=== PATIENT | female | born 1940 | race Caucasian/White ===

== ENCOUNTER → 2017-05-14 | Outpatient (CLI) | payer MEDICARE, OTHER ==
[~2017-05-14] MED LIST: BENICAR20 MG PO; NORCO 5-325 TA1 EACH PO; OMEPRAZOLE 20 M20 M1 PO
== END ==
LOC: M.RAD 15:08
DX: Z12.31 Encounter for screening mammogram for malignant neoplasm of breast (principal); M85.80 Other specified disorders of bone density and structure, unspecified site; Z78.0 Asymptomatic menopausal state

== ENCOUNTER 2017-06-06 10:26 | Emergency (ER) | payer MEDICARE, OTHER ==
[~2017-06-06] VITALS: Ht 162.6 cm; Wt 81.7 kg
[2017-06-06] MEDS ORDERED: BENICAR20 MG PO (10:36)
[2017-06-06] MEDS ORDERED: OMEPRAZOLE 20 M20 M1 PO (10:36)
[2017-06-06] MEDS ORDERED: NORCO 5-325 TA1 EACH PO (11:27)
[2017-06-06 11:47] VITALS: BP 191/72
== END 2017-06-06 11:49 | disposition home or self-care (01) ==
LOC: M.ERS 10:26
DX: S42.294A Other nondisplaced fracture of upper end of right humerus, initial encounter for closed fracture (principal); I10 Essential (primary) hypertension; K21.9 Gastro-esophageal reflux disease without esophagitis; Z88.2 Allergy status to sulfonamides; W10.8XXA Fall (on) (from) other stairs and steps, initial encounter; Y93.89 Activity, other specified; Y92.89 Other specified places as the place of occurrence of the external cause; Y99.8 Other external cause status

== ENCOUNTER → 2018-12-04 | Outpatient (CLI) | payer MEDICARE, OTHER | LOC: M.RAD 15:23 | DX: J06.9 Acute upper respiratory infection, unspecified (principal); R61 Generalized hyperhidrosis ==

== ENCOUNTER → 2018-12-22 | Outpatient (CLI) | payer MEDICARE, OTHER | LOC: M.RAD 14:40 | DX: M47.26 Other spondylosis with radiculopathy, lumbar region (principal); M48.061 Spinal stenosis, lumbar region without neurogenic claudication; M48.07 Spinal stenosis, lumbosacral region ==

== ENCOUNTER 2021-06-11 17:27 | Emergency (ER) | payer MEDICARE, OTHER ==
[~2021-06-11] VITALS: Ht 162.6 cm; Wt 77.1 kg
[2021-06-11] MEDS ORDERED: FUROSEMIDE 20 M20 MG PO (17:47)
[2021-06-11] MEDS ORDERED: ELIQUIS5 MG PO (17:48)
[2021-06-11] MEDS ORDERED: LANOXIN 0.25M0.25 M1 PO (17:48)
[2021-06-11] MEDS ORDERED: TENORMIN25 MG PO (17:48)
[2021-06-11] MEDS ORDERED: LOSARTAN-HCTZ1 EAC3 PO (17:48)
[2021-06-11] MEDS ORDERED: CALCIUM500 MG PO (17:49)
[2021-06-11 19:02] LABS: ABSOLUTE LYMPHOCYTES 1.2 thou/uL (0.8-5.3); ABSOLUTE MONOCYTES 0.8 thou/uL (0.0-1.2); ABSOLUTE NEUTROPHILS 6.8 thou/uL (1.6-8.1); BASOPHILS 0.3 %; EOSINOPHILS 0.1 %; HEMATOCRIT 39.3 % (37.0-47.0); HEMOGLOBIN 13.1 gm/dL (12.0-15.0); LYMPHOCYTES 13.7 %; MCH 29.4 pg (26.0-34.0); MCHC 33.2 g/dL (28.0-37.0); MCV 88.5 fL (80.0-100.0); MONOCYTES 8.7 %; MPV 8.5 fl. (7.2-11.1); NUCLEATED RBCS 0 /100WBC; PLATELET COUNT* 273 thou/uL (150-400); POLYS 77.2 %; RBC 4.44 mil/uL (4.20-5.00); RDW-CV 14.4 % (10.5-14.5); WBC 8.8 thou/uL (4.0-11.0)
[2021-06-11 19:09] LABS: CREATININE 0.9 mg/dL (0.6-1.3); POTASSIUM 3.4 mmol/L (3.5-5.1)
[2021-06-11] MEDS ORDERED: CYCLOBENZAPRINE5 MG PO (19:34)
[2021-06-11 19:45] VITALS: BP 180/88
--- NOTE | 2021-06-12 09:49 | EKG ---
[place] [address] ELECTROCARDIOGRAM REPORT Name: HAMILTON GONZALEZ Room: 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1940 Requested By: New Miguel Order Number: [id number] MD: Chetan Scott Measurements Intervals [place] Rate: 86 P: ND: QRS: 7 QRSD: 89 T: -89 QT: 301 QTc: 360 Interpretive Statements Atrial fibrillation Nonspecific repol abnormality, diffuse leads No previous ECG available for comparison Electronically Signed On 06-12-2021 9:49:33 SENIOR WEB ARCHITECT by Chetan Scott [email or web address] <ELECTRONICALLY SIGNED> By: Chetan Scott MD, [facility] 06/12/21 0949 17 17 Chetan Scott MD, [facility] /EPI
== END 2021-06-11 19:45 | disposition home or self-care (01) ==
LOC: M.ERS 17:27
PROVIDERS: Physician Assistant Medical
DX: R10.13 Epigastric pain (principal); M54.6 Pain in thoracic spine; I10 Essential (primary) hypertension; K21.9 Gastro-esophageal reflux disease without esophagitis; I48.91 Unspecified atrial fibrillation; Z88.2 Allergy status to sulfonamides; Z88.8 Allergy status to other drugs, medicaments and biological substances